=== PATIENT | male | born 1945 | race Hispanic/Latino ===

== ENCOUNTER 2017-09-26 15:29 | Emergency (ER) | payer OTHER ==
--- NOTE | 2017-09-26 16:57 | ULT ---
VENOUS DUPLEX SONOGRAM RIGHT LOWER EXTREMITY: 09/26/17 HISTORY: Right leg pain and edema. FINDINGS: The right common femoral vein and greater saphenous junction were evaluated along with the femoral, d eep femoral, popliteal, and posterior tibial veins. There is good color and spectral doppler flow, co mpression, and augmentation. IMPRESSION: No sonographic evidence of DVT within the right lower extremity. POS: [facility]
--- NOTE | 2017-09-26 17:59 | RAD ---
RIGHT ANKLE THREE VIEWS: 09/26/17 HISTORY: Fell with ankle pain. Some minimal arthritic changes of the ankle. No significant joint space narrowing. There is no signs of fracture, dislocation or joint effusion. IMPRESSION: No evidence of fracture. POS: [facility]
== END 2017-09-26 18:30 | disposition home or self-care (01) ==
LOC: ERS 15:29 → EEVIPCON 15:29 → ERS 18:30
DX: S93.401A Sprain of unspecified ligament of right ankle, initial encounter (principal); I10 Essential (primary) hypertension; E78.5 Hyperlipidemia, unspecified; Z79.82 Long term (current) use of aspirin; Z79.899 Other long term (current) drug therapy; X50.1XXA Overexertion from prolonged static or awkward postures, initial encounter